=== PATIENT | female | born 1970 | race Caucasian/White ===

== ENCOUNTER 2019-02-27 12:07 | Inpatient (IN) | payer OTHER ==
[~2019-02-27] VITALS: Ht 152.4 cm; Wt 76.4 kg
[2019-02-27] VITALS (17 sets, daily range): BP systolic 86–130; BP diastolic 57–87
[2019-02-27] MEDS ORDERED: LACTATED RINGERS 1,000 ML IV SCH (12:40)
[2019-02-27] MEDS ORDERED: NONE PER PT (13:22)
[2019-02-27 13:38] LABS: ALBUMIN 3.1 g/dL (3.4-5.0); ANION GAP 9 mmol/L (5-15); CALCIUM 8.5 mg/dL (8.5-10.1); CHLORIDE 106 mmol/L (98-107)
[2019-02-27 13:44] LABS: ALANINE AMINOTRANSFERASE 24 U/L (12-78); ALKALINE PHOSPHATASE 53 U/L (45-117); BILIRUBIN,TOTAL 0.4 mg/dL (0.2-1.0); TOTAL PROTEIN 5.9 g/dL (6.4-8.2)
[2019-02-27 13:49] LABS: MEAN CORPUSCULAR HEMOGLOBIN 30.1 pg (27.0-34.8); MEAN CORPUSCULAR HGB CONC 33.5 g/dL (32.4-35.8); MEAN CORPUSCULAR VOLUME 89.7 fL (80-100); MEAN PLATELET VOLUME 8.3 fL (7.4-10.4); RED BLOOD COUNT 2.09 x10^6/uL (3.82-5.3); RED CELL DISTRIBUTION WIDTH 13.6 % (9.6-15.2)
[2019-02-27 13:53] LABS: PLATELET COUNT 3 x10^3/uL (130-400)
[2019-02-27] MEDS ORDERED: OXYTOCIN 10 UNITS/ML, 1ML ONE (14:05)
[2019-02-27] MEDS ORDERED: MISOPROSTOL 200 MCG TABLET ONE (14:05)
[2019-02-27] MEDS ORDERED: SILVER NITRATE STICK TP ONE (14:05)
[2019-02-27] MEDS ORDERED: METHYLERGONOVINE 0.2 MG/ML IM ONE (14:06)
[2019-02-27 14:25] LABS: MD YES
[2019-02-27 14:29] LABS: LYMPH#(MANUAL) 2.51 x10^3/uL (1-3.4); LYMPHS% (MANUAL) 22 % (22-44); MONOS#(MANUAL) 0.11 x10^3/uL (0.3-2.7); MONOS% (MANUAL) 1 % (2-9); NRBC % (MANUAL) 2 % (0-1); SEG#(MANUAL) 8.78 x10^3/uL (1.8-6.8); SEGS% (MANUAL) 77 % (42-75)
[2019-02-27 14:31] LABS: ANISOCYTOSIS 1+; MICROCYTOSIS 1+; POLYCHROMASIA 1+
[2019-02-27 14:32] LABS: HYPOCHROMIA 1+
[2019-02-27 14:34] LABS: <PLATELET ESTIMATE> DECREASED; SPHEROCYTES 1+; TOXIC GRAN 1+
[2019-02-27 14:35] LABS: <PLT MORPHOLOGY> QNS FOR PLT MORPH
[2019-02-27 15:39] LABS: MEAN CORPUSCULAR HEMOGLOBIN 29.8 pg (27.0-34.8); MEAN CORPUSCULAR HGB CONC 33.6 g/dL (32.4-35.8); MEAN CORPUSCULAR VOLUME 88.9 fL (80-100); RED BLOOD COUNT 1.93 x10^6/uL (3.82-5.3); RED CELL DISTRIBUTION WIDTH 13.9 % (9.6-15.2)
[2019-02-27 15:43] LABS: PLATELET COUNT 3 x10^3/uL (130-400)
[2019-02-27 15:54] LABS: MEAN PLATELET VOLUME 8.3 fL (7.4-10.4)
[2019-02-27 15:56] LABS: PROTIME 10.5 Seconds (9.6-11.5)
[2019-02-27 16:33] LABS: D-DIMER (DIC) 0.66 ug/mlFEU (0.00-0.52)
[2019-02-27] MEDS ORDERED: DIPHENHYDRAMINE 50 MG/ML, 1ML IVPush STA (18:30)
[2019-02-27] MEDS ORDERED: ACETAMINOPHEN 325 MG TABLET PO STA (18:30)
[2019-02-27 19:24] LABS: MD NO
[2019-02-27] MEDS: FERROUS SULFATE 325 MG TABLET PO SCH (20:55)
[2019-02-27 21:28] LABS: INTERNATIONAL NORMALIZED RATIO 1.02 (0.93-1.1); PROTHROMBIN TIME 10.7 Seconds (9.6-11.5)
[2019-02-27 21:37] LABS: MEAN CORPUSCULAR HEMOGLOBIN 29.9 pg (27.0-34.8); MEAN CORPUSCULAR HGB CONC 33.5 g/dL (32.4-35.8); MEAN CORPUSCULAR VOLUME 89.2 fL (80-100)
[2019-02-27 21:52] LABS: PLATELET COUNT 4 x10^3/uL (130-400)
[2019-02-27 21:58] LABS: MD YES
[2019-02-27 22:05] LABS: ANISOCYTOSIS 1+; BAND#(MANUAL) 0.49 x10^3/uL; BANDS%(MANUAL) 4 % (0-7); EOS#(MANUAL) 0.12 x10^3/uL (0.0-0.4); EOS% (MANUAL) 1 % (1-7); HYPOCHROMIA 1+; LYMPH#(MANUAL) 0.49 x10^3/uL (1-3.4); LYMPHS% (MANUAL) 4 % (22-44); METAMYELOCYTES# (MANUAL) 0.12 x10^3/uL (0-0); METAMYELOCYTES% (MANUAL) 1 % (0-1); MICROCYTOSIS 1+; MONOS#(MANUAL) 0.37 x10^3/uL (0.3-2.7); MONOS% (MANUAL) 3 % (2-9); NRBC % (MANUAL) 1 % (0-1); POLYCHROMASIA 1+; SEG#(MANUAL) 10.61 x10^3/uL (1.8-6.8); SEGS% (MANUAL) 87 % (42-75)
[2019-02-27 22:06] LABS: SPHEROCYTES 1+
[2019-02-27 22:07] LABS: <PLATELET ESTIMATE> DECREASED; <PLT MORPHOLOGY> QNS FOR PLT MORPH; TOXIC GRAN 1+
[2019-02-27] MEDS: ESTROGENS CONJUGATED 0.625 MG TABLET PO SCH (23:35)
[2019-02-28] VITALS (25 sets, daily range): BP systolic 91–120; BP diastolic 49–74
[2019-02-28] MEDS: ESTROGENS CONJUGATED 0.625 MG TABLET PO SCH (06:03)
[2019-02-28] MEDS: FERROUS SULFATE 325 MG TABLET PO SCH ×2 (09:03→21:18)
[2019-02-28] MEDS ORDERED: ESTROGENS CONJUGATED 0.625 MG TABLET PO SCH (10:00)
[2019-02-28 10:56] LABS: PLATELET COUNT 3 x10^3/uL (130-400)
[2019-02-28] MEDS ORDERED: PREMARIN 25 MG IV SCH ×3 (13:00→18:00)
[2019-02-28] MEDS ORDERED: PHARMACY INSTRUCTION MC PRN ×3 (14:30→15:00)
[2019-02-28] MEDS ORDERED: DIPHENHYDRAMINE 25 MG CAPSULE ONE (14:47)
[2019-02-28] MEDS ORDERED: ACETAMINOPHEN 325 MG TABLET ONE (14:47)
[2019-02-28] MEDS ORDERED: predniSONE 50MG TABLET PO SCH (15:00)
[2019-02-28] MEDS ORDERED: DEXAMETHASONE 4 MG/ML, 1ML ONE (15:00)
[2019-02-28] MEDS ORDERED: IMMUNE GLOBULIN IV ONE (15:30)
[2019-02-28] MEDS: DIPHENHYDRAMINE 25 MG CAPSULE PO PRN (15:38)
[2019-02-28] MEDS: ACETAMINOPHEN 325 MG TABLET PO PRN (15:38)
[2019-02-28] MEDS ORDERED: ONDANSETRON 2MG/ML, 2ML IVPush PRN (16:00)
[2019-02-28 16:10] LABS: ABSOLUTE RETICS # 0.115 x10^6/uL (0.5-2.5); RED BLOOD COUNT 2.16 x10^6/uL (3.82-5.3); RETICULOCYTE COUNT % 5.31 % (0.5-1.5)
[2019-02-28 16:15] LABS: MD YES; MEAN CORPUSCULAR HEMOGLOBIN 30.4 pg (27.0-34.8); MEAN CORPUSCULAR HGB CONC 33.5 g/dL (32.4-35.8); MEAN CORPUSCULAR VOLUME 90.9 fL (80-100); MEAN PLATELET VOLUME 9.4 fL (7.4-10.4); RED BLOOD COUNT 2.18 x10^6/uL (3.82-5.3); RED CELL DISTRIBUTION WIDTH 14.2 % (9.6-15.2)
[2019-02-28 16:18] LABS: PLATELET COUNT 5 x10^3/uL (130-400)
[2019-02-28 16:28] LABS: ANISOCYTOSIS 1+; BAND#(MANUAL) 0.98 x10^3/uL; BANDS%(MANUAL) 16 % (0-7); HYPOCHROMIA 1+; LYMPH#(MANUAL) 1.22 x10^3/uL (1-3.4); LYMPHS% (MANUAL) 20 % (22-44); METAMYELOCYTES# (MANUAL) 0.12 x10^3/uL (0-0); METAMYELOCYTES% (MANUAL) 2 % (0-1); MICROCYTOSIS 1+; MYELOCYTES# (MANUAL) 0.06 x10^3/uL (0-0); MYELOCYTES% (MANUAL) 1 % (0-0); NRBC % (MANUAL) 6 % (0-1); POLYCHROMASIA 1+; SEG#(MANUAL) 3.72 x10^3/uL (1.8-6.8); SEGS% (MANUAL) 61 % (42-75); SPHEROCYTES 1+
[2019-02-28 16:30] LABS: <PLATELET ESTIMATE> DECREASED; <PLT MORPHOLOGY> QNS FOR PLT MORPH; OVALOCYTES 1+; TEAR DROPS 1+
[2019-02-28] MEDS ORDERED: HYDROcodone/APAP 5/325 TABLET PO ONE (17:30)
[2019-02-28] MEDS ORDERED: methylPREDNISolone SOD SUCC 125 MG/2 ML IVPush PRN (18:00)
[2019-02-28] MEDS ORDERED: HYDROcodone/APAP 5/325 TABLET PO PRN (18:00)
[2019-02-28] MEDS: PREMARIN 25 MG IV SCH ×2 (18:18→21:19)
[2019-02-28 21:52] LABS: MEAN CORPUSCULAR HEMOGLOBIN 33.3 pg (27.0-34.8); MEAN CORPUSCULAR HGB CONC 35.2 g/dL (32.4-35.8); MEAN CORPUSCULAR VOLUME 94.5 fL (80-100); PLATELET COUNT 12 x10^3/uL (130-400); RED CELL DISTRIBUTION WIDTH 14.3 % (9.6-15.2)
[2019-02-28 22:12] LABS: MD YES
[2019-02-28 22:13] LABS: BAND#(MANUAL) 0.79 x10^3/uL; BANDS%(MANUAL) 5 % (0-7); LYMPH#(MANUAL) 1.41 x10^3/uL (1-3.4); LYMPHS% (MANUAL) 9 % (22-44); METAMYELOCYTES# (MANUAL) 0.16 x10^3/uL (0-0); METAMYELOCYTES% (MANUAL) 1 % (0-1); MYELOCYTES# (MANUAL) 0.16 x10^3/uL (0-0); MYELOCYTES% (MANUAL) 1 % (0-0); SEG#(MANUAL) 13.19 x10^3/uL (1.8-6.8); SEGS% (MANUAL) 84 % (42-75)
[2019-02-28 22:14] LABS: ANISOCYTOSIS 1+; MICROCYTOSIS 1+; OVALOCYTES 1+; POLYCHROMASIA 1+; SPHEROCYTES 1+
[2019-02-28 22:15] LABS: <PLATELET ESTIMATE> DECREASED; TEAR DROPS 1+
[2019-02-28 22:16] LABS: LARGE PLATELETS 1+
[2019-03-01] MEDS: PREMARIN 25 MG IV SCH ×3 (01:34→08:40)
[2019-03-01 03:20] LABS: MEAN CORPUSCULAR HEMOGLOBIN 31.1 pg (27.0-34.8); MEAN CORPUSCULAR HGB CONC 34.5 g/dL (32.4-35.8); MEAN PLATELET VOLUME 10.6 fL (7.4-10.4); RED BLOOD COUNT 2.92 x10^6/uL (3.82-5.3); RED CELL DISTRIBUTION WIDTH 14.6 % (9.6-15.2)
[2019-03-01 03:21] LABS: PLATELET COUNT 21 x10^3/uL (130-400)
[2019-03-01 03:24] LABS: MD YES
[2019-03-01 03:28] LABS: ALANINE AMINOTRANSFERASE 34 U/L (12-78); ALBUMIN 2.4 g/dL (3.4-5.0); ANION GAP 7 mmol/L (5-15); CALCIUM 7.4 mg/dL (8.5-10.1); CHLORIDE 107 mmol/L (98-107); CREATININE 0.94 mg/dL (0.55-1.02)
[2019-03-01 03:35] LABS: ANISOCYTOSIS 1+; BAND#(MANUAL) 0.31 x10^3/uL; BANDS%(MANUAL) 2 % (0-7); LYMPH#(MANUAL) 1.38 x10^3/uL (1-3.4); LYMPHS% (MANUAL) 9 % (22-44); METAMYELOCYTES# (MANUAL) 0.15 x10^3/uL (0-0); METAMYELOCYTES% (MANUAL) 1 % (0-1); MICROCYTOSIS 1+; MYELOCYTES# (MANUAL) 0.15 x10^3/uL (0-0); MYELOCYTES% (MANUAL) 1 % (0-0); NRBC % (MANUAL) 2 % (0-1); SEG#(MANUAL) 13.31 x10^3/uL (1.8-6.8); SEGS% (MANUAL) 87 % (42-75)
[2019-03-01 03:36] LABS: POLYCHROMASIA 1+; SPHEROCYTES 1+; TEAR DROPS 1+
[2019-03-01 03:37] LABS: <PLATELET ESTIMATE> DECREASED; LARGE PLATELETS 1+; TOXIC GRAN 1+
[2019-03-01 03:49] LABS: ALKALINE PHOSPHATASE 54 U/L (45-117); BILIRUBIN,TOTAL 0.8 mg/dL (0.2-1.0); TOTAL PROTEIN 7.4 g/dL (6.4-8.2)
[2019-03-01] MEDS: ACETAMINOPHEN 325 MG TABLET PO PRN ×2 (06:22→20:10)
[2019-03-01] MEDS: FERROUS SULFATE 325 MG TABLET PO SCH ×2 (08:40→20:09)
[2019-03-01 09:18] LABS: MEAN CORPUSCULAR HEMOGLOBIN 30.4 pg (27.0-34.8); MEAN CORPUSCULAR HGB CONC 34.1 g/dL (32.4-35.8); MEAN CORPUSCULAR VOLUME 89.2 fL (80-100); MEAN PLATELET VOLUME 11.2 fL (7.4-10.4); RED BLOOD COUNT 2.95 x10^6/uL (3.82-5.3); RED CELL DISTRIBUTION WIDTH 15.1 % (9.6-15.2)
[2019-03-01 09:43] LABS: BASOPHILS # (AUTO) 0.03 x10^3/uL (0-0.1); BASOPHILS % (AUTO) 0 % (0-1); EOSINOPHILS % (AUTO) 0 % (1-7); LYMPHOCYTES # (AUTO) 1.19 x10^3/uL (1-3.4); LYMPHOCYTES % (AUTO) 7 % (22-44); MD SCAN; MONOCYTES # (AUTO) 0.13 x10^3/uL (0.2-0.8); MONOCYTES % (AUTO) 1 % (2-9); NEUTROPHILS # (AUTO) 16.42 x10^3/uL (1.8-6.8); NEUTROPHILS % (AUTO) 92 % (42-75)
[2019-03-01 10:27] VITALS: BP 131/78
[2019-03-01 10:35] LABS: PLATELET COUNT 31 x10^3/uL (130-400)
[2019-03-01 12:29] VITALS: BP 115/74
[2019-03-01 14:03] LABS: CLOSTRIDIUM DIFFICILE ANTIGEN NEGATIVE; CLOSTRIDIUM DIFFICILE TOXIN NEGATIVE (Negative)
[2019-03-01] MEDS ORDERED: DEXAMETHASONE 4 MG TABLET PO SCH (15:00)
[2019-03-01 18:26] LABS: MEAN CORPUSCULAR HEMOGLOBIN 31.2 pg (27.0-34.8); MEAN CORPUSCULAR HGB CONC 34.4 g/dL (32.4-35.8); MEAN CORPUSCULAR VOLUME 90.8 fL (80-100); MEAN PLATELET VOLUME 11.8 fL (7.4-10.4); PLATELET COUNT 75 x10^3/uL (130-400); RED BLOOD COUNT 3.02 x10^6/uL (3.82-5.3); RED CELL DISTRIBUTION WIDTH 14.9 % (9.6-15.2)
[2019-03-01 18:54] LABS: BASOPHILS # (AUTO) 0.01 x10^3/uL (0-0.1); BASOPHILS % (AUTO) 0 % (0-1); EOSINOPHILS # (AUTO) 0.45 x10^3/uL (0-0.4); EOSINOPHILS % (AUTO) 2 % (1-7); LYMPHOCYTES % (AUTO) 6 % (22-44); MD SCAN; MONOCYTES # (AUTO) 0.71 x10^3/uL (0.2-0.8); MONOCYTES % (AUTO) 3 % (2-9); NEUTROPHILS # (AUTO) 19.04 x10^3/uL (1.8-6.8); NEUTROPHILS % (AUTO) 89 % (42-75)
[2019-03-01 19:00] VITALS: BP 116/72
[2019-03-02 01:07] VITALS: BP 96/61
[2019-03-02 06:33] VITALS: BP 111/77
[2019-03-02 09:06] LABS: BASOPHILS # (AUTO) 0.03 x10^3/uL (0-0.1); BASOPHILS % (AUTO) 0 % (0-1); EOSINOPHILS # (AUTO) 0.21 x10^3/uL (0-0.4); EOSINOPHILS % (AUTO) 2 % (1-7); LYMPHOCYTES # (AUTO) 2.25 x10^3/uL (1-3.4); LYMPHOCYTES % (AUTO) 16 % (22-44); MD SCAN; MEAN CORPUSCULAR HEMOGLOBIN 30.7 pg (27.0-34.8); MEAN CORPUSCULAR HGB CONC 33.5 g/dL (32.4-35.8); MEAN CORPUSCULAR VOLUME 91.6 fL (80-100); MEAN PLATELET VOLUME 10.7 fL (7.4-10.4); MONOCYTES # (AUTO) 0.54 x10^3/uL (0.2-0.8); MONOCYTES % (AUTO) 4 % (2-9); NEUTROPHILS # (AUTO) 10.76 x10^3/uL (1.8-6.8); NEUTROPHILS % (AUTO) 78 % (42-75); PLATELET COUNT 73 x10^3/uL (130-400); RED BLOOD COUNT 2.82 x10^6/uL (3.82-5.3); RED CELL DISTRIBUTION WIDTH 15.2 % (9.6-15.2)
[2019-03-02] MEDS: DEXAMETHASONE 4 MG TABLET PO SCH (09:21)
[2019-03-02] MEDS: FERROUS SULFATE 325 MG TABLET PO SCH ×2 (09:21→22:09)
[2019-03-02 12:58] VITALS: BP 109/75
[2019-03-02 16:53] VITALS: BP 114/79
[2019-03-02] MEDS ORDERED: SILVER NITRATE STICK TP ONE (17:15)
[2019-03-02] MEDS ORDERED: BUPIVACAINE/PF 0.25% ONE (17:15)
[2019-03-02] MEDS ORDERED: EPINEPHRINE 1 MG/ML, 1ML ONE (17:15)
[2019-03-02] MEDS ORDERED: FENTANYL PF 100 MCG/2ML ONE (18:24)
[2019-03-02] MEDS ORDERED: MIDAZOLAM 1 MG/ML, 2ML ONE (18:24)
[2019-03-02] MEDS ORDERED: LIDOCAINE-MPF 2% ,5ML ONE (18:27)
[2019-03-02] MEDS ORDERED: PHENYLEPHRINE 10 MG/ML ONE (18:33)
[2019-03-02] MEDS ORDERED: ROCURONIUM 10 MG/ML,10ML ONE (18:33)
[2019-03-02] MEDS ORDERED: METOCLOPRAMIDE 5 MG/ML, 2ML ONE (18:33)
[2019-03-02] MEDS ORDERED: SUCCINYLCHOLINE 20 MG/ML, 10ML ONE (18:33)
[2019-03-02] MEDS ORDERED: hydrALAzine 20 MG/ML, 1ML IV PRN (19:30)
[2019-03-02] MEDS ORDERED: FENTANYL PF 100 MCG/2ML IV PRN (19:30)
[2019-03-02] MEDS ORDERED: LABETALOL 5MG/ML, 20ML IV PRN (19:30)
[2019-03-02] MEDS ORDERED: MIDAZOLAM 1 MG/ML, 2ML IV PRN (19:30)
[2019-03-02] MEDS ORDERED: ALBUTEROL/IPRATROPIUM 2.5MG/0.5MG, 3 ML NPPB PRN (19:30)
[2019-03-02] MEDS ORDERED: ACETAMINOPHEN 325 MG TABLET PO PRN (19:30)
[2019-03-02] MEDS ORDERED: OXYcodone 5 MG/5 ML ORAL.SOL UDC PO PRN (19:30)
[2019-03-02] MEDS ORDERED: PROMETHAZINE 25 MG/ML, 1ML IV PRN (19:30)
[2019-03-02] MEDS ORDERED: PROPOFOL 10 MG/ML, 20ML ONE (19:34)
[2019-03-02] MEDS ORDERED: ONDANSETRON 2MG/ML, 2ML ONE (19:34)
[2019-03-02] MEDS ORDERED: DEXAMETHASONE 4 MG/ML, 1ML ONE (19:34)
[2019-03-02] MEDS ORDERED: CEFAZOLIN 1,000 MG ONE (19:34)
[2019-03-02 20:46] VITALS: BP 98/63
[2019-03-02] MEDS: DIPHENHYDRAMINE 25 MG CAPSULE PO PRN (22:10)
[2019-03-02] MEDS: ACETAMINOPHEN 325 MG TABLET PO PRN (22:10)
[2019-03-03 01:20] VITALS: BP 82/51
[2019-03-03 06:39] VITALS: BP 91/57
[2019-03-03 08:19] LABS: MEAN CORPUSCULAR HEMOGLOBIN 30.1 pg (27.0-34.8); MEAN CORPUSCULAR HGB CONC 33.8 g/dL (32.4-35.8); PLATELET COUNT 74 x10^3/uL (130-400); RED BLOOD COUNT 3.01 x10^6/uL (3.82-5.3); RED CELL DISTRIBUTION WIDTH 14.8 % (9.6-15.2)
[2019-03-03] MEDS: FERROUS SULFATE 325 MG TABLET PO SCH (08:23)
[2019-03-03] MEDS: DEXAMETHASONE 4 MG TABLET PO SCH (08:24)
[2019-03-03 08:26] LABS: ALBUMIN 2.6 g/dL (3.4-5.0); ANION GAP 6 mmol/L (5-15); CALCIUM 7.8 mg/dL (8.5-10.1); CHLORIDE 107 mmol/L (98-107)
[2019-03-03 08:29] LABS: ALANINE AMINOTRANSFERASE 51 U/L (12-78); ALKALINE PHOSPHATASE 67 U/L (45-117); BILIRUBIN,TOTAL 0.6 mg/dL (0.2-1.0); TOTAL PROTEIN 6.8 g/dL (6.4-8.2)
[2019-03-03 08:55] LABS: BASOPHILS # (AUTO) 0.02 x10^3/uL (0-0.1); BASOPHILS % (AUTO) 0 % (0-1); EOSINOPHILS % (AUTO) 0 % (1-7); LYMPHOCYTES # (AUTO) 1.71 x10^3/uL (1-3.4); LYMPHOCYTES % (AUTO) 11 % (22-44); MD SCAN; MONOCYTES # (AUTO) 0.68 x10^3/uL (0.2-0.8); MONOCYTES % (AUTO) 4 % (2-9); NEUTROPHILS # (AUTO) 13.21 x10^3/uL (1.8-6.8); NEUTROPHILS % (AUTO) 85 % (42-75)
[2019-03-03] MEDS ORDERED: DEXA1.5T28 PO (10:47)
[2019-03-03] MEDS ORDERED: DEXA4TAB66 PO (10:53)
[2019-03-03 11:03] VITALS: BP 100/65
== END 2019-03-03 13:42 | disposition home or self-care (01) | DRG 744 ==
LOC: OUT 12:07 → SUATTDRO 16:03 → 4NE 16:11 → OUT 21:01 → 4NE 21:02 → OBSVTOIN 21:02 → CCU 02-28 13:17 → 4NE 03-01 10:05
PROVIDERS: ADMIT Hospitalist; ATTEND Internal Medicine
PROC: 30233K1 Transfusion of Nonautologous Frozen Plasma into Peripheral Vein, Percutaneous Approach (ICD-10-PCS; principal; 2019-02-27)
PROC: 30233R1 Transfusion of Nonautologous Platelets into Peripheral Vein, Percutaneous Approach (ICD-10-PCS; 2019-02-27)
PROC: 30233P1 Transfusion of Nonautologous Frozen Red Cells into Peripheral Vein, Percutaneous Approach (ICD-10-PCS; 2019-02-27)
PROC: 0UDB8ZZ Extraction of Endometrium, Via Natural or Artificial Opening Endoscopic (ICD-10-PCS; 2019-03-02)
PROC: 0UH Female Reproductive System, Insertion (ICD-10-PCS; 2019-03-02)
PROC: 0UH98HZ Insertion of Contraceptive Device into Uterus, Via Natural or Artificial Opening Endoscopic (ICD-10-PCS; 2019-03-02)
DX: N92.0 Excessive and frequent menstruation with regular cycle (principal); R57.8 Other shock; D62 Acute posthemorrhagic anemia; D69.3 Immune thrombocytopenic purpura; D72.829 Elevated white blood cell count, unspecified; T38.0X5A Adverse effect of glucocorticoids and synthetic analogues, initial encounter; T80.92XA Unspecified transfusion reaction, initial encounter; Y84.8 Other medical procedures as the cause of abnormal reaction of the patient, or of later complication, without mention of misadventure at the time of the procedure; Z82.49 Family history of ischemic heart disease and other diseases of the circulatory system
CPT/HCPCS: 36415; J3490; 76700; 80053; 80074; 82607; 82670; 82728; 83001; 83010; 83540; 83550; 83615; 83735; 84100; 84443; 84702; 85014; 85018; 85025; 85045; 85049; 85379; 85384; 85610; 85730; 86038; 86078; 86850; 86880; 86900; 86923; 87040; 87081; 87205; 87324; 88305; G0378; J0171; J0690; J1100; J1561; J2250; J2405; J2704; J3010; J0330; J1200; J1410; J2210; J2370; J2590; J2765; J7120; J7298; P9016; P9017; P9035; Q0163

== ENCOUNTER 2019-03-17 16:51 | Emergency (ER) | payer OTHER ==
[~2019-03-17] VITALS: Ht 152.4 cm; Wt 72.0 kg
[~2019-03-17 16:51] MED LIST: DEXA1.5T28 PO; DEXA4TAB66 PO; NONE PER PT
[2019-03-17] MEDS ORDERED: OMEP10CA5 PO (17:14)
--- NOTE | 2019-03-17 17:14 | NUR ---
PT WAS DIAGNOSED WITH IDIOPATHIC THROMBOCYTOPENIA 2 WEEKS AGO. HAD 3 PLATELET TRANSUSIONS AND 2 UNITS OF BLOOD. WAS BLEEDING FROM VAGINA. TODAY SHE CAME IN FEELING SOB, DIZZY, AND "MY BODY FEELS HEAVY". NOT FEELING HERSELF. DR HERNADEZ IS BEDSIDE.
[2019-03-17 18:05] VITALS: BP 126/79
--- NOTE | 2019-03-17 18:06 | NUR ---
PT IS RESTING IN ROOM. FAMILY IS BEDSIDE. AWAITING LAB RESULTS
[2019-03-17 18:15] LABS: BASOPHILS # (AUTO) 0.03 x10^3/uL (0-0.1); BASOPHILS % (AUTO) 0 % (0-1); EOSINOPHILS % (AUTO) 0 % (1-7); LYMPHOCYTES # (AUTO) 0.95 x10^3/uL (1-3.4); LYMPHOCYTES % (AUTO) 9 % (22-44); MD NO; MEAN CORPUSCULAR HEMOGLOBIN 28.5 pg (27.0-34.8); MEAN CORPUSCULAR HGB CONC 32.7 g/dL (32.4-35.8); MEAN CORPUSCULAR VOLUME 87.1 fL (80-100); MEAN PLATELET VOLUME 10.4 fL (7.4-10.4); MONOCYTES # (AUTO) 0.13 x10^3/uL (0.2-0.8); MONOCYTES % (AUTO) 1 % (2-9); NEUTROPHILS # (AUTO) 9.59 x10^3/uL (1.8-6.8); NEUTROPHILS % (AUTO) 90 % (42-75); PLATELET COUNT 72 x10^3/uL (130-400); RED BLOOD COUNT 4.14 x10^6/uL (3.82-5.3); RED CELL DISTRIBUTION WIDTH 14.7 % (9.6-15.2)
[2019-03-17 18:21] LABS: INTERNATIONAL NORMALIZED RATIO 0.94 (0.93-1.1); PROTHROMBIN TIME 9.9 Seconds (9.6-11.5)
[2019-03-17 18:22] LABS: ALANINE AMINOTRANSFERASE 84 U/L (12-78); ALBUMIN 3.1 g/dL (3.4-5.0); ANION GAP 7 mmol/L (5-15); CALCIUM 8.4 mg/dL (8.5-10.1); CHLORIDE 108 mmol/L (98-107); CREATININE 0.84 mg/dL (0.55-1.02)
[2019-03-17 18:24] LABS: ALKALINE PHOSPHATASE 136 U/L (45-117); BILIRUBIN,TOTAL 0.3 mg/dL (0.2-1.0); TOTAL PROTEIN 7.1 g/dL (6.4-8.2)
[2019-03-17 18:38] LABS: TROPONIN I < 0.015 ng/mL (0.000-0.045)
== END 2019-03-17 19:14 | disposition home or self-care (01) ==
LOC: ED 18:45
DX: D69.6 Thrombocytopenia, unspecified (principal); Z87.891 Personal history of nicotine dependence
CPT/HCPCS: 36415; 71045; 80053; 84484; 85025; 85610; 85730; 86850; 86900; 93005; 99284

== ENCOUNTER 2019-04-09 05:59 | Day surgery (SDC) | payer OTHER ==
[~2019-04-09] VITALS: Ht 152.4 cm; Wt 72.0 kg
[~2019-04-09 05:59] MED LIST changes: +OMEP10CA5 PO
[2019-04-09] MEDS ORDERED: SODIUM CHLORIDE 0.9% 1,000 ML IV SCH (06:50)
[2019-04-09 07:11] VITALS: BP 141/92
[2019-04-09] MEDS ORDERED: PRED20TA PO (07:16)
[2019-04-09 07:19] LABS: MEAN CORPUSCULAR HEMOGLOBIN 28.2 pg (27.0-34.8); MEAN CORPUSCULAR HGB CONC 32.9 g/dL (32.4-35.8); MEAN CORPUSCULAR VOLUME 85.9 fL (80-100); RED CELL DISTRIBUTION WIDTH 14.9 % (9.6-15.2)
[2019-04-09] MEDS ORDERED: LIDOCAINE 1%, 10ML ONE (07:48)
[2019-04-09] MEDS ORDERED: MIDAZOLAM 1 MG/ML, 5ML ONE (07:53)
[2019-04-09] MEDS ORDERED: FLUMAZENIL 0.1 MG/1 ML, 5ML ONE (07:53)
[2019-04-09] MEDS ORDERED: FENTANYL PF 100 MCG/2ML ONE (07:53)
[2019-04-09] MEDS ORDERED: NALOXONE 1 MG/ML, 2ML ONE (07:53)
[2019-04-09 07:56] LABS: MEAN PLATELET VOLUME 8.9 fL (7.4-10.4); PLATELET COUNT 85 x10^3/uL (130-400)
[2019-04-09 08:02] LABS: MD SCAN
[2019-04-09 08:07] LABS: LYMPHOCYTES % (AUTO) 33 % (22-44); MONOCYTES % (AUTO) 5 % (2-9); NEUTROPHILS % (AUTO) 60 % (42-75)
[2019-04-09 08:08] LABS: BASOPHILS % (AUTO) 1 % (0-1); EOSINOPHILS # (AUTO) 0.15 x10^3/uL (0-0.4); EOSINOPHILS % (AUTO) 1 % (1-7); LYMPHOCYTES # (AUTO) 3.67 x10^3/uL (1-3.4); NEUTROPHILS # (AUTO) 6.68 x10^3/uL (1.8-6.8)
[2019-04-16] MEDS ORDERED: PRED20TA PO (10:04)
== END 2019-04-09 10:20 | disposition home or self-care (01) ==
LOC: OUT 05:59
PROVIDERS: ATTEND Internal Medicine Hematology & Oncology
DX: D69.6 Thrombocytopenia, unspecified (principal); D72.829 Elevated white blood cell count, unspecified
CPT/HCPCS: 36415; 38222; 77012; 85025; 85060; 85097; 88237; 88264; 88280; 88305; 88311; 99156; 99157; J2250; J3010; J7030; 88313; J2310

== ENCOUNTER 2019-04-21 14:58 | Inpatient (IN) | payer OTHER ==
[~2019-04-21] VITALS: Ht 152.4 cm; Wt 74.0 kg
[~2019-04-21 14:58] MED LIST changes: +PRED20TA PO
[2019-04-21 15:34] LABS: ALBUMIN 3.8 g/dL (3.4-5.0); ANION GAP 5 mmol/L (5-15); CALCIUM 8.8 mg/dL (8.5-10.1); CHLORIDE 108 mmol/L (98-107); CREATININE 1.09 mg/dL (0.55-1.02)
[2019-04-21 15:47] LABS: INTERNATIONAL NORMALIZED RATIO 0.96 (0.93-1.1); PROTHROMBIN TIME 10.2 Seconds (9.6-11.5)
--- NOTE | 2019-04-21 15:53 | NUR ---
rn case management: Pt to ED room 14 from lobby at this time
[2019-04-21 15:54] LABS: MEAN CORPUSCULAR HEMOGLOBIN 28.1 pg (27.0-34.8); MEAN CORPUSCULAR HGB CONC 33.4 g/dL (32.4-35.8); MEAN CORPUSCULAR VOLUME 84.4 fL (80-100); MEAN PLATELET VOLUME 7.6 fL (7.4-10.4); RED CELL DISTRIBUTION WIDTH 15.3 % (9.6-15.2)
[2019-04-21 15:56] LABS: MD YES
[2019-04-21 15:57] LABS: PLATELET COUNT 4 x10^3/uL (130-400)
[2019-04-21 16:00] LABS: LYMPH#(MANUAL) 1.61 x10^3/uL (1-3.4); LYMPHS% (MANUAL) 13 % (22-44); METAMYELOCYTES# (MANUAL) 0.12 x10^3/uL (0-0); METAMYELOCYTES% (MANUAL) 1 % (0-1); MONOS#(MANUAL) 0.12 x10^3/uL (0.3-2.7); MONOS% (MANUAL) 1 % (2-9); SEG#(MANUAL) 10.54 x10^3/uL (1.8-6.8); SEGS% (MANUAL) 85 % (42-75)
[2019-04-21 16:01] LABS: ANISOCYTOSIS 1+
[2019-04-21 16:02] LABS: <PLATELET ESTIMATE> DECREASED; <PLT MORPHOLOGY> QNS FOR PLT MORPH
--- NOTE | 2019-04-21 16:20 | NUR ---
PT TO ROOM 14 W/ C/O BEING TOLD AT DR. MAXWELL'S OFFICE THAT SHE HAS PLATELETS OF 6 IN THEIR OFFICE. PT HAD CRITICAL PLATELETS OF 4 IN ED. PT STATES SHE HAS HX ITP AND HAS HAD ISSUES W/ PLATELETS IN THE PAST. WAS DX W/ ITP IN FEBRUARY. DENIED ANY BLEEDING. PT RESTING ON GURNEY. NADN. MONITORS APPLIED. WARM BLANKET PROVIDED.
--- NOTE | 2019-04-21 16:45 | NUR ---
PT RESTING ON GURNEY. NADN. HIDALGO.
--- NOTE | 2019-04-21 17:08 | NUR ---
REPORT GIVEN TO JM GEORGE RN. ALL QUESTIONS ANSWERED. PT TO BE MEDICATED PRIOR TO TRANSFER TO FLOOR.
--- NOTE | 2019-04-21 17:11 | NUR ---
SPOKE W/ VERNON VICKERS. PER RANCHO TWIST TO ACCESS BOTTLE W/ VENT OPEN, DO NOT SHAKE BOTTLE, DO NOT PUSH IN TO ACCESS BOTTLE. STARTED AT 35 ML/HR. MAY DOUBLE DOSE AFTER HALF HOUR UNTIL MAX OF 4 GM/KG/HR. RETURN DEMONSTRATION PERFORMED W/ VERNON VICKERS. CALLED AND LEFT MESSAGE FOR JM GEORGE RN.
[2019-04-21] MEDS ORDERED: DIPHENHYDRAMINE 50 MG/ML, 1ML ONE (17:22)
[2019-04-21 17:28] VITALS: BP 131/84
[2019-04-21] MEDS ORDERED: DIPHENHYDRAMINE 50 MG/ML, 1ML IVPush PRN (17:30)
[2019-04-21] MEDS ORDERED: SENNA/DOCUSATE TABLET PO PRN (17:30)
[2019-04-21] MEDS ORDERED: ONDANSETRON 2MG/ML, 2ML IVPush PRN (17:30)
[2019-04-21] MEDS ORDERED: IMMUNE GLOBULIN IV ONE (17:30)
[2019-04-21] MEDS ORDERED: ACETAMINOPHEN 325 MG TABLET PO PRN (17:30)
[2019-04-21] MEDS ORDERED: ONDANSETRON ODT 4 MG PO PRN (17:30)
--- NOTE | 2019-04-21 17:33 | NUR ---
CONSENT SIGNED BY PT, THIS RN, AND ERP DR. IBARRA.
[2019-04-21 17:44] VITALS: BP 137/86
[2019-04-21 18:00] VITALS: BP 137/86
[2019-04-21 18:25] VITALS: BP 134/66
[2019-04-21 19:46] VITALS: BP 119/74
[2019-04-21] MEDS: SODIUM CHLORIDE 0.9% 1,000 ML IV SCH (20:30)
[2019-04-22 02:48] VITALS: BP 105/71
[2019-04-22 04:44] LABS: % IRON SATURATION 7 % (20-55); IRON LEVEL 20 mcg/dL (50-170); TOTAL IRON BINDING CAPACITY 297 mcg/dL (250-450)
[2019-04-22 06:01] LABS: MEAN CORPUSCULAR HEMOGLOBIN 28.1 pg (27.0-34.8); MEAN CORPUSCULAR HGB CONC 33.6 g/dL (32.4-35.8); MEAN CORPUSCULAR VOLUME 83.8 fL (80-100); MEAN PLATELET VOLUME 12.3 fL (7.4-10.4); RED CELL DISTRIBUTION WIDTH 14.9 % (9.6-15.2)
[2019-04-22 06:03] LABS: BASOPHILS # (AUTO) 0.03 x10^3/uL (0-0.1); BASOPHILS % (AUTO) 0 % (0-1); EOSINOPHILS # (AUTO) 0.11 x10^3/uL (0-0.4); EOSINOPHILS % (AUTO) 1 % (1-7); LYMPHOCYTES # (AUTO) 1.64 x10^3/uL (1-3.4); LYMPHOCYTES % (AUTO) 20 % (22-44); MD SCAN; MONOCYTES # (AUTO) 0.06 x10^3/uL (0.2-0.8); MONOCYTES % (AUTO) 1 % (2-9); NEUTROPHILS # (AUTO) 6.25 x10^3/uL (1.8-6.8); NEUTROPHILS % (AUTO) 77 % (42-75); PLATELET COUNT 11 x10^3/uL (130-400)
[2019-04-22] MEDS ORDERED: FERROUS SULFATE 325 MG TABLET PO SCH (07:30)
[2019-04-22 07:56] VITALS: BP 128/86
[2019-04-22 13:55] VITALS: BP 117/67
[2019-04-22] MEDS: SODIUM CHLORIDE 0.9% 1,000 ML IV SCH (14:17)
[2019-04-22] MEDS ORDERED: IMMUNE GLOBULIN IV ONE (15:30)
[2019-04-22 19:16] VITALS: BP 123/76
[2019-04-22 19:18] LABS: HCT (SEDRATE) 35.3 % (34.6-47.8)
[2019-04-22 19:52] LABS: MD YES; MEAN CORPUSCULAR HEMOGLOBIN 27.7 pg (27.0-34.8); MEAN CORPUSCULAR HGB CONC 32.6 g/dL (32.4-35.8); MEAN CORPUSCULAR VOLUME 84.9 fL (80-100); MEAN PLATELET VOLUME 11.2 fL (7.4-10.4); RED BLOOD COUNT 4.19 x10^6/uL (3.82-5.3); RED CELL DISTRIBUTION WIDTH 15.4 % (9.6-15.2)
[2019-04-22 19:53] LABS: PLATELET COUNT 20 x10^3/uL (130-400)
[2019-04-22 19:56] LABS: BAND#(MANUAL) 0.05 x10^3/uL; BANDS%(MANUAL) 1 % (0-7); LYMPH#(MANUAL) 0.34 x10^3/uL (1-3.4); LYMPHS% (MANUAL) 7 % (22-44); SEG#(MANUAL) 4.42 x10^3/uL (1.8-6.8); SEGS% (MANUAL) 92 % (42-75)
[2019-04-22 19:57] LABS: <PLATELET ESTIMATE> DECREASED; <PLT MORPHOLOGY> QNS FOR PLT MORPH; ANISOCYTOSIS 1+
[2019-04-23 02:30] VITALS: BP 124/84
[2019-04-23 05:10] LABS: MEAN CORPUSCULAR VOLUME 85.4 fL (80-100); RED BLOOD COUNT 3.67 x10^6/uL (3.82-5.3); RED CELL DISTRIBUTION WIDTH 14.8 % (9.6-15.2)
[2019-04-23 05:11] LABS: MEAN PLATELET VOLUME 13.2 fL (7.4-10.4)
[2019-04-23 05:34] LABS: PLATELET COUNT 41 x10^3/uL (130-400)
[2019-04-23 05:42] LABS: MD YES
[2019-04-23 05:44] LABS: LYMPHS% (MANUAL) 15 % (22-44); MONOS#(MANUAL) 0.22 x10^3/uL (0.3-2.7); MONOS% (MANUAL) 3 % (2-9); MYELOCYTES# (MANUAL) 0.07 x10^3/uL (0-0); MYELOCYTES% (MANUAL) 1 % (0-0); SEG#(MANUAL) 5.91 x10^3/uL (1.8-6.8); SEGS% (MANUAL) 81 % (42-75)
[2019-04-23 05:45] LABS: <PLATELET ESTIMATE> DECREASED; <RBC MORPHOLOGY> NORMAL
[2019-04-23 05:46] LABS: LARGE PLATELETS 1+
[2019-04-23 08:23] VITALS: BP 123/83
[2019-04-23] MEDS ORDERED: FERR-51 PO (09:44)
[2019-04-23] MEDS ORDERED: SENN-193 PO (09:44)
== END 2019-04-23 10:40 | disposition home or self-care (01) | DRG 813 ==
LOC: ED 16:28 → 4NW 16:29 → DCLOUNGE 04-23 10:32
PROVIDERS: ADMIT Internal Medicine; ATTEND Internal Medicine
PROC: 30233R1 Transfusion of Nonautologous Platelets into Peripheral Vein, Percutaneous Approach (ICD-10-PCS; principal; 2019-04-21)
DX: D69.3 Immune thrombocytopenic purpura (principal); D50.9 Iron deficiency anemia, unspecified; E66.9 Obesity, unspecified; N92.0 Excessive and frequent menstruation with regular cycle; G43.909 Migraine, unspecified, not intractable, without status migrainosus
CPT/HCPCS: 36415; 80048; 82040; 82728; 83540; 83550; 84703; 85025; 85610; 85651; 86644; 86645; 86664; 86665; 86747; 86850; 86900; 87806; 96374; 96375; G0378; J1561; G0475; J1200; J7030; J7512; P9035

== ENCOUNTER 2019-04-28 13:57 | Inpatient (IN) | payer OTHER ==
[~2019-04-28] VITALS: Ht 152.4 cm; Wt 74.5 kg
[~2019-04-28 13:57] MED LIST changes: +FERR-51 PO; +SENN-193 PO
[2019-04-28] MEDS ORDERED: LACTATED RINGERS 1,000 ML IV SCH (14:26)
[2019-04-28] MEDS ORDERED: PLEASE ENTER HEIGHT AND WEIGHT MC SCH (14:30)
[2019-04-28 14:32] VITALS: BP 145/99
[2019-04-28] MEDS ORDERED: FLUORESCEIN SODIUM 500 MG/5 ML ONE (14:59)
[2019-04-28] MEDS ORDERED: NEOSPORIN OINT, 15GM ONE (14:59)
[2019-04-28] MEDS ORDERED: EPINEPHRINE 1 MG/ML, 1ML ONE (14:59)
[2019-04-28] MEDS ORDERED: BUPIVACAINE/PF 0.25% ONE (14:59)
[2019-04-28] MEDS ORDERED: SCOPOLAMINE 1MG PATCH TD ONE (15:11)
[2019-04-28] MEDS ORDERED: GABAPENTIN 300 MG CAPSULE PO STA (15:11)
[2019-04-28] MEDS ORDERED: ACETAMINOPHEN 500 MG TABLET PO STA (15:11)
[2019-04-28] MEDS ORDERED: MIDAZOLAM 1 MG/ML, 2ML ONE (15:20)
[2019-04-28] MEDS ORDERED: FENTANYL PF 250 MCG/5ML ONE ×2 (15:20→17:19)
[2019-04-28] MEDS ORDERED: ROCURONIUM 10MG/ML,5ML ONE (15:21)
[2019-04-28] MEDS ORDERED: DIAZEPAM 5 MG TABLET PO STA (15:24)
[2019-04-28 15:26] LABS: BASOPHILS # (AUTO) 0.03 x10^3/uL (0-0.1); BASOPHILS % (AUTO) 0 % (0-1); EOSINOPHILS % (AUTO) 0 % (1-7); LYMPHOCYTES # (AUTO) 2.08 x10^3/uL (1-3.4); LYMPHOCYTES % (AUTO) 14 % (22-44); MD NO; MEAN CORPUSCULAR HGB CONC 33.3 g/dL (32.4-35.8); MEAN CORPUSCULAR VOLUME 83.9 fL (80-100); MEAN PLATELET VOLUME 8.6 fL (7.4-10.4); MONOCYTES # (AUTO) 0.36 x10^3/uL (0.2-0.8); MONOCYTES % (AUTO) 2 % (2-9); NEUTROPHILS # (AUTO) 12.39 x10^3/uL (1.8-6.8); NEUTROPHILS % (AUTO) 83 % (42-75); PLATELET COUNT 254 x10^3/uL (130-400); RED BLOOD COUNT 4.37 x10^6/uL (3.82-5.3); RED CELL DISTRIBUTION WIDTH 15.8 % (9.6-15.2)
[2019-04-28] MEDS ORDERED: PROPOFOL 10 MG/ML, 20ML ONE (15:28)
[2019-04-28] MEDS ORDERED: HYDROCORTISONE 100 MG INJ. ONE (15:29)
[2019-04-28] MEDS ORDERED: CEFAZOLIN 1,000 MG ONE (16:22)
[2019-04-28] MEDS ORDERED: ALBUTEROL SULFATE 2.5 MG/3 ML NPPB PRN (17:00)
[2019-04-28] MEDS ORDERED: DIAZEPAM 5 MG/ML, 2ML IVPush PRN (17:00)
[2019-04-28] MEDS ORDERED: ONDANSETRON 2MG/ML, 2ML IV PRN ×2 (17:00→21:00)
[2019-04-28] MEDS ORDERED: hydrALAzine 20 MG/ML, 1ML IV PRN (17:00)
[2019-04-28] MEDS ORDERED: MIDAZOLAM 1 MG/ML, 2ML IV PRN (17:00)
[2019-04-28] MEDS ORDERED: EPHEDRINE 50 MG/ML, 1ML IVPush PRN (17:00)
[2019-04-28] MEDS ORDERED: FENTANYL PF 100 MCG/2ML IV PRN (17:00)
[2019-04-28] MEDS ORDERED: HYDROmorphone 1 MG/ML, 1ML INJ IVPush PRN (17:00)
[2019-04-28] MEDS ORDERED: LABETALOL 5MG/ML, 20ML IV PRN (17:00)
[2019-04-28] MEDS ORDERED: PROMETHAZINE 25 MG/ML, 1ML IV PRN (17:00)
[2019-04-28] MEDS ORDERED: MEPERIDINE/PF 25MG/ML,1ML IVPush PRN (17:00)
[2019-04-28] MEDS ORDERED: ONDANSETRON ODT 8 MG PO PRN (17:00)
[2019-04-28] MEDS ORDERED: PROMETHAZINE 12.5 MG SUPP PR PRN (17:00)
[2019-04-28] MEDS ORDERED: HALOPERIDOL 5 MG/ML IV PRN (17:00)
[2019-04-28] MEDS ORDERED: ONDANSETRON 2MG/ML, 2ML ONE (18:29)
[2019-04-28] MEDS ORDERED: SUGAMMADEX 200 MG/2 ML IVPush ONE (18:29)
[2019-04-28] MEDS ORDERED: MEPERIDINE/PF 25MG/ML,1ML ONE (19:00)
[2019-04-28] MEDS ORDERED: FENTANYL PF 100 MCG/2ML ONE (19:09)
[2019-04-28] MEDS ORDERED: OXYcodone 5 MG/5 ML ORAL.SOL UDC ONE ×2 (19:10→19:38)
[2019-04-28] MEDS: OXYcodone 5 MG/5 ML ORAL.SOL UDC PO PRN ×2 (19:11→19:39)
[2019-04-28] MEDS: LACTATED RINGERS 1,000 ML IV SCH ×2 (20:30→21:10)
[2019-04-28] MEDS ORDERED: ESTRADIOL 0.1 MG/24 HR PATCH TD SCH (21:00)
[2019-04-28] MEDS ORDERED: morphine SULFATE 10 MG/ML, 1ML IV PRN (21:00)
[2019-04-28] MEDS: SIMETHICONE 80 MG CHEW TAB PO SCH (21:10)
[2019-04-28] MEDS: GABAPENTIN 300 MG CAPSULE PO SCH (21:11)
[2019-04-28 23:57] VITALS: BP 120/88
[2019-04-29] MEDS: OXYcodone/APAP 5/325MG TABLET PO PRN ×2 (02:56→09:32)
[2019-04-29] MEDS ORDERED: KETOROLAC 30 MG/1 ML IV PRN (04:00)
[2019-04-29 04:04] VITALS: BP 113/71
[2019-04-29] MEDS: LACTATED RINGERS 1,000 ML IV SCH (04:32)
[2019-04-29 07:28] VITALS: BP 107/69
[2019-04-29] MEDS: GABAPENTIN 300 MG CAPSULE PO SCH (08:23)
[2019-04-29] MEDS: SIMETHICONE 80 MG CHEW TAB PO SCH (08:23)
[2019-04-29 12:38] LABS: MEAN CORPUSCULAR HEMOGLOBIN 28.8 pg (27.0-34.8); MEAN CORPUSCULAR HGB CONC 34.5 g/dL (32.4-35.8); MEAN CORPUSCULAR VOLUME 83.6 fL (80-100); MEAN PLATELET VOLUME 8.8 fL (7.4-10.4); PLATELET COUNT 236 x10^3/uL (130-400); RED BLOOD COUNT 3.25 x10^6/uL (3.82-5.3); RED CELL DISTRIBUTION WIDTH 16.1 % (9.6-15.2)
[2019-04-29 13:09] LABS: BASOPHILS # (AUTO) 0.03 x10^3/uL (0-0.1); BASOPHILS % (AUTO) 0 % (0-1); EOSINOPHILS # (AUTO) 0.19 x10^3/uL (0-0.4); EOSINOPHILS % (AUTO) 1 % (1-7); LYMPHOCYTES # (AUTO) 3.25 x10^3/uL (1-3.4); LYMPHOCYTES % (AUTO) 21 % (22-44); MD SCAN; MONOCYTES # (AUTO) 0.81 x10^3/uL (0.2-0.8); MONOCYTES % (AUTO) 5 % (2-9); NEUTROPHILS # (AUTO) 11.07 x10^3/uL (1.8-6.8); NEUTROPHILS % (AUTO) 72 % (42-75)
[2019-04-29 13:57] VITALS: BP 101/60
[2019-04-29] MEDS ORDERED: ESTR1PAT45 TD (14:26)
[2019-04-29] MEDS ORDERED: GABA300C10 PO (14:27)
[2019-04-29] MEDS ORDERED: OXYC5TAB3 PO (14:28)
== END 2019-04-29 15:56 | disposition home or self-care (01) | DRG 742 ==
LOC: SDC 13:57 → 4NE 19:40 → SDC 20:13 → 4NE 20:14 → DCLOUNGE 04-29 15:41
PROVIDERS: ADMIT Obstetrics & Gynecology Maternal & Fetal Medicine; ATTEND Obstetrics & Gynecology Maternal & Fetal Medicine
PROC: 0UT2FZZ Resection of Bilateral Ovaries, Via Natural or Artificial Opening With Percutaneous Endoscopic Assistance (ICD-10-PCS; 2019-04-28)
PROC: 0UT7FZZ Resection of Bilateral Fallopian Tubes, Via Natural or Artificial Opening With Percutaneous Endoscopic Assistance (ICD-10-PCS; 2019-04-28)
PROC: 0UT9FZZ Resection of Uterus, Via Natural or Artificial Opening With Percutaneous Endoscopic Assistance (ICD-10-PCS; principal; 2019-04-28 16:30)
DX: N92.0 Excessive and frequent menstruation with regular cycle (principal); D69.3 Immune thrombocytopenic purpura
CPT/HCPCS: 36415; 84702; 85014; 85018; 85025; 88307; G0378; J0171; J0690; J2250; J2405; J2704; J3010; J3490; J1720; J2175; J7120

== ENCOUNTER 2019-09-09 12:16 | Inpatient (IN) | payer OTHER ==
[~2019-09-09] VITALS: Ht 152.4 cm; Wt 80.0 kg
[~2019-09-09 12:16] MED LIST changes: +ESTR1PAT45 TD; +GABA300C10 PO; +OXYC5TAB3 PO
--- NOTE | 2019-09-09 13:29 | NUR ---
PT PRESENTS TO ED WITH C/O GENERALIZED ABD PAIN ONSET YESTERDAY, N/V ONSET TODAY. PT IS A&O, RESPS EVEN AND UNLABORED. PT HAS HX ITP, DENIES HEMATEMESIS. BP AND SPO2 MONITORS IN PLACE, CLEAN CATCH URINE SAMPLE OBTAINED AND SENT TO LAB. AWAITING US, LAB AND URINE RESULTS.
[2019-09-09] MEDS ORDERED: MAALOX/HYOSCYAMINE/LIDOCAINE 45 ML BTL PO ONE (13:30)
--- NOTE | 2019-09-09 13:40 | NUR ---
US IN PROGRESS AT BEDSIDE.
[2019-09-09] MEDS ORDERED: MAALOX/HYOSCYAMINE/LIDOCAINE 45 ML BTL ONE (13:56)
[2019-09-09 13:59] LABS: ALANINE AMINOTRANSFERASE 466 U/L (12-78); ALBUMIN 3.7 g/dL (3.4-5.0); ANION GAP 6 mmol/L (5-15); CALCIUM 8.9 mg/dL (8.5-10.1); CHLORIDE 109 mmol/L (98-107); CREATININE 0.84 mg/dL (0.55-1.02)
[2019-09-09 14:01] LABS: ALKALINE PHOSPHATASE 265 U/L (45-117); BASOPHILS # (AUTO) 0.03 x10^3/uL (0-0.1); BASOPHILS % (AUTO) 0 % (0-1); EOSINOPHILS # (AUTO) 0.01 x10^3/uL (0-0.4); EOSINOPHILS % (AUTO) 0 % (1-7); LYMPHOCYTES % (AUTO) 9 % (22-44); MD NO; MEAN CORPUSCULAR HEMOGLOBIN 25.9 pg (27.0-34.8); MEAN CORPUSCULAR HGB CONC 32.7 g/dL (32.4-35.8); MEAN CORPUSCULAR VOLUME 79.1 fL (80-100); MEAN PLATELET VOLUME 9.8 fL (7.4-10.4); MONOCYTES # (AUTO) 0.24 x10^3/uL (0.2-0.8); MONOCYTES % (AUTO) 2 % (2-9); NEUTROPHILS # (AUTO) 9.43 x10^3/uL (1.8-6.8); NEUTROPHILS % (AUTO) 89 % (42-75); PLATELET COUNT 238 x10^3/uL (130-400); RED BLOOD COUNT 5.33 x10^6/uL (3.82-5.3); RED CELL DISTRIBUTION WIDTH 15.5 % (9.6-15.2); TOTAL PROTEIN 7.1 g/dL (6.4-8.2)
--- NOTE | 2019-09-09 14:05 | NUR ---
PT MEDICATED PER EMAR, TOLERATED WELL. PT REPORTS 7/10 ABD PAIN. AWAITING US RESULTS AND DISPO.
[2019-09-09 14:22] LABS: MICROSCOPIC INDICATED
--- NOTE | 2019-09-09 14:50 | NUR ---
REPORT GIVEN TO LANETTE LOZOYA AT BEDSIDE, PT A&O, RESPS EVEN AND UNLABORED. BP AND SPO2 MONITORS IN PLACE. CALL LIGHT IN REACH. IMAGING AND LAB RESULTS DISCUSSED WITH MD, AWAITING FURTHER ORDERS AT THIS TIME.
--- NOTE | 2019-09-09 14:50 | NUR ---
BEDSIDE REPORT RECEIVED FROM LANETTE PIKE. PLAN OF CARE DISCUSSED
[2019-09-09] MEDS ORDERED: HYDROmorphone 1 MG/ML, 1ML INJ ONE (14:55)
[2019-09-09] MEDS ORDERED: ONDANSETRON 2MG/ML, 2ML ONE ×2 (14:55→18:30)
[2019-09-09] MEDS ORDERED: ONDANSETRON 2MG/ML, 2ML IVPush ONE (15:00)
[2019-09-09] MEDS ORDERED: HYDROmorphone 2 MG/ML, 1ML IVPush PRN (15:00)
[2019-09-09] MEDS ORDERED: [UNRECOGNIZED DRUG - CODE] SQ (15:02)
--- NOTE | 2019-09-09 15:03 | NUR ---
PATIENT MEDICATED PER EMAR, TOELRATED WELL. IVF RUNNING PER VERBAL MD ORDERS. MD IN ROOM AT THIS TIME TO DISCUSS ADMIT
[2019-09-09] MEDS: SODIUM CHLORIDE 0.9% 1,000 ML IV SCH (15:56)
[2019-09-09] MEDS ORDERED: ACETAMINOPHEN 325 MG TABLET PO PRN (16:00)
[2019-09-09] MEDS ORDERED: BISACODYL 10 MG SUPP PR PRN (16:00)
[2019-09-09] MEDS ORDERED: ONDANSETRON ODT 4 MG PO PRN (16:00)
[2019-09-09] MEDS: PIPERACILLIN/TAZO/PMX 3.375GM 50 ML IV SCH (16:00)
[2019-09-09] MEDS ORDERED: DOCUSATE 100 MG CAPSULE PO PRN (16:00)
[2019-09-09] MEDS ORDERED: ONDANSETRON 2MG/ML, 2ML IVPush PRN (16:00)
[2019-09-09] MEDS ORDERED: morphine SULFATE 10 MG/ML, 1ML IVPush PRN (16:00)
[2019-09-09] MEDS ORDERED: PIPERACILLIN/TAZO/PMX 3.375GM 50 ML ONE (16:16)
--- NOTE | 2019-09-09 16:30 | NUR ---
IV ABX STARTED PER EMAR
--- NOTE | 2019-09-09 16:38 | NUR ---
REPORT GIVEN TO LANETTE FUENTES. PATIENT TO BE TRANSPORTED TO [facility] SURGERY AT 1800
--- NOTE | 2019-09-09 16:46 | NUR ---
REPORT GIVEN TO SUPERVISOR MALTED MILK, PATIENT TO BE TRANSPORTED TO PRE-OP. FLOOR AFTER SURGERY
[2019-09-09] MEDS ORDERED: MIDAZOLAM 1 MG/ML, 2ML ONE (17:41)
[2019-09-09] MEDS ORDERED: FENTANYL PF 100 MCG/2ML ONE (17:41)
[2019-09-09] MEDS ORDERED: BUPIVACAINE/EPI 0.5% 1:200K ONE (17:56)
[2019-09-09] MEDS ORDERED: KETOROLAC 30 MG/1 ML ONE (18:03)
[2019-09-09] MEDS ORDERED: SUGAMMADEX 200 MG/2 ML IVPush ONE (18:03)
[2019-09-09] MEDS ORDERED: LORazepam 2 MG/ML, 1ML IVPush PRN (18:30)
[2019-09-09] MEDS ORDERED: SUCCINYLCHOLINE 20 MG/ML, 10ML ONE (18:30)
[2019-09-09] MEDS ORDERED: HYDROmorphone 1 MG/ML, 1ML INJ IVPush PRN (18:30)
[2019-09-09] MEDS ORDERED: hydrALAzine 20 MG/ML, 1ML IV PRN (18:30)
[2019-09-09] MEDS ORDERED: OXYcodone 5 MG/5 ML ORAL.SOL UDC PO PRN (18:30)
[2019-09-09] MEDS ORDERED: GLYCOPYRROLATE 0.2MG/1ML, 5ML ONE (18:30)
[2019-09-09] MEDS ORDERED: ALBUTEROL SULFATE 2.5 MG/3 ML NPPB PRN (18:30)
[2019-09-09] MEDS ORDERED: PROMETHAZINE 25 MG/ML, 1ML IVPush PRN (18:30)
[2019-09-09] MEDS ORDERED: DEXAMETHASONE 4 MG/ML, 1ML ONE (18:30)
[2019-09-09] MEDS ORDERED: NEOSTIGMINE 1 MG/ML, 10ML ONE (18:30)
[2019-09-09] MEDS ORDERED: PROPOFOL 10 MG/ML, 20ML ONE (18:30)
[2019-09-09] MEDS ORDERED: ROCURONIUM 10MG/ML,5ML ONE (18:30)
[2019-09-09] MEDS ORDERED: FENTANYL PF 100 MCG/2ML IV PRN (18:30)
[2019-09-09] MEDS ORDERED: LABETALOL 5MG/ML, 20ML IV PRN (18:30)
[2019-09-09] MEDS ORDERED: OXYcodone 5 MG/5 ML ORAL.SOL UDC ONE (19:21)
[2019-09-09] MEDS ORDERED: MEPERIDINE/PF 25MG/ML,1ML ONE (19:22)
[2019-09-09] MEDS: MEPERIDINE/PF 25MG/0.5ML IVPush PRN ×2 (19:25→19:45)
[2019-09-09 21:31] VITALS: BP 120/79
[2019-09-09] MEDS: HYDROcodone/APAP 5/325 TABLET PO PRN (22:02)
[2019-09-10] MEDS: PIPERACILLIN/TAZO/PMX 3.375GM 50 ML IV SCH ×3 (00:28→16:27)
[2019-09-10] MEDS: SODIUM CHLORIDE 0.9% 1,000 ML IV SCH ×4 (00:28→21:00)
[2019-09-10 02:29] VITALS: BP 103/66
[2019-09-10] MEDS: HYDROcodone/APAP 5/325 TABLET PO PRN ×2 (02:36→06:34)
[2019-09-10 05:45] LABS: BASOPHILS # (AUTO) 0.03 x10^3/uL (0-0.1); BASOPHILS % (AUTO) 0 % (0-1); EOSINOPHILS % (AUTO) 0 % (1-7); LYMPHOCYTES # (AUTO) 0.82 x10^3/uL (1-3.4); LYMPHOCYTES % (AUTO) 10 % (22-44); MD NO; MEAN CORPUSCULAR HEMOGLOBIN 26.1 pg (27.0-34.8); MEAN CORPUSCULAR HGB CONC 32.8 g/dL (32.4-35.8); MEAN CORPUSCULAR VOLUME 79.4 fL (80-100); MEAN PLATELET VOLUME 9.4 fL (7.4-10.4); MONOCYTES # (AUTO) 0.25 x10^3/uL (0.2-0.8); MONOCYTES % (AUTO) 3 % (2-9); NEUTROPHILS # (AUTO) 7.04 x10^3/uL (1.8-6.8); NEUTROPHILS % (AUTO) 87 % (42-75); PLATELET COUNT 203 x10^3/uL (130-400); RED BLOOD COUNT 4.48 x10^6/uL (3.82-5.3)
[2019-09-10 06:00] LABS: ALBUMIN 2.9 g/dL (3.4-5.0); ANION GAP 6 mmol/L (5-15); CALCIUM 7.9 mg/dL (8.5-10.1); CHLORIDE 109 mmol/L (98-107)
[2019-09-10 06:04] LABS: ALANINE AMINOTRANSFERASE 280 U/L (12-78); ALKALINE PHOSPHATASE 190 U/L (45-117); BILIRUBIN,TOTAL 0.4 mg/dL (0.2-1.0); CREATININE 0.78 mg/dL (0.55-1.02)
[2019-09-10 08:04] VITALS: BP 106/69
[2019-09-10] MEDS: PANTOPRAZOLE 40 MG IV IVPush SCH (08:48)
[2019-09-10 14:08] VITALS: BP 115/66
[2019-09-10 20:30] VITALS: BP 118/78
[2019-09-11 03:15] VITALS: BP 108/70
[2019-09-11] MEDS: SODIUM CHLORIDE 0.9% 1,000 ML IV SCH ×2 (04:00→10:42)
[2019-09-11 06:56] LABS: BASOPHILS # (AUTO) 0.02 x10^3/uL (0-0.1); BASOPHILS % (AUTO) 0 % (0-1); EOSINOPHILS # (AUTO) 0.07 x10^3/uL (0-0.4); EOSINOPHILS % (AUTO) 1 % (1-7); LYMPHOCYTES # (AUTO) 1.84 x10^3/uL (1-3.4); LYMPHOCYTES % (AUTO) 26 % (22-44); MD NO; MEAN CORPUSCULAR HGB CONC 32.5 g/dL (32.4-35.8); MEAN PLATELET VOLUME 9.4 fL (7.4-10.4); MONOCYTES # (AUTO) 0.46 x10^3/uL (0.2-0.8); MONOCYTES % (AUTO) 7 % (2-9); NEUTROPHILS # (AUTO) 4.68 x10^3/uL (1.8-6.8); NEUTROPHILS % (AUTO) 66 % (42-75); PLATELET COUNT 183 x10^3/uL (130-400); RED CELL DISTRIBUTION WIDTH 16.8 % (9.6-15.2)
[2019-09-11 07:02] LABS: ALBUMIN 2.7 g/dL (3.4-5.0); ANION GAP 8 mmol/L (5-15); CALCIUM 7.3 mg/dL (8.5-10.1); CHLORIDE 112 mmol/L (98-107)
[2019-09-11 07:06] LABS: ALANINE AMINOTRANSFERASE 172 U/L (12-78); ALKALINE PHOSPHATASE 148 U/L (45-117); BILIRUBIN,TOTAL 0.3 mg/dL (0.2-1.0); CREATININE 0.77 mg/dL (0.55-1.02); TOTAL PROTEIN 5.6 g/dL (6.4-8.2)
[2019-09-11 07:58] VITALS: BP 133/79
[2019-09-11] MEDS: PANTOPRAZOLE 40 MG IV IVPush SCH (08:44)
[2019-09-11] MEDS: PIPERACILLIN/TAZO/PMX 3.375GM 50 ML IV SCH ×2 (08:44)
[2019-09-11 12:43] VITALS: BP 128/79
[2019-09-11] MEDS ORDERED: DOCU100C33 PO (13:48)
[2019-09-11] MEDS ORDERED: ACET325T26 PO (13:48)
== END 2019-09-11 14:40 | disposition home or self-care (01) | DRG 417 ==
LOC: ED 14:58 → EDIP 15:09 → 4EST 20:30 → 4NE 09-10 00:04 → DCLOUNGE 09-11 14:30
PROVIDERS: ADMIT Internal Medicine; ATTEND Internal Medicine
PROC: 0FT44ZZ Resection of Gallbladder, Percutaneous Endoscopic Approach (ICD-10-PCS; principal; 2019-09-09 18:30)
DX: K80.00 Calculus of gallbladder with acute cholecystitis without obstruction (principal); K85.10 Biliary acute pancreatitis without necrosis or infection; D69.3 Immune thrombocytopenic purpura; E66.9 Obesity, unspecified; E83.51 Hypocalcemia; E87.6 Hypokalemia; K76.0 Fatty (change of) liver, not elsewhere classified; Z20.828 Contact with and (suspected) exposure to other viral communicable diseases; Z68.34 Body mass index [BMI] 34.0-34.9, adult; Z90.710 Acquired absence of both cervix and uterus
CPT/HCPCS: 36415; 76700; 80053; 81001; 83690; 83735; 85025; 87635; 88304; 96374; 96375; G0378; J1100; J1170; J1885; J2175; J2250; J2405; J2543; J2704; J2710; J3010; Q0162; C9113; J0330; J7030